=== PATIENT | male | born 1960 | race Two or more races ===

== ENCOUNTER 2021-06-18 08:54 | Inpatient (IN) | payer MEDICAID, OTHER ==
[~2021-06-18] VITALS: Ht 162.6 cm; Wt 88.7 kg
[2021-06-18] MEDS ORDERED: ASPirin 81 mg TAB PO ONE (09:15)
[2021-06-18 09:43] LABS: Basophils # (auto) 0.1 10 ^3/uL (0-0.2); Basophils % (auto) 1.6 % (0.0-2.0); Eosinophils # (auto) 0.3 10 ^3/uL (0-0.8); Eosinophils % (auto) 4.2 % (0.0-7.0); Hematocrit 46.6 % (41.0-53.0); Lymphocytes # (auto) 1.1 10 ^3/uL (0.4-5.4); Lymphocytes % (auto) 14.8 % (10.0-50.0); Mean Corpuscular Hemoglobin 31.8 pg (28.0-32.0); Mean Corpuscular Hgb Conc. 34.3 g/dL (32.0-36.0); Mean Corpuscular Volume 92.6 fL (80.0-100.0); Monocytes # (auto) 0.6 10 ^3/uL (0-1.3); Monocytes % (auto) 7.4 % (0.0-12.0); Neutrophils # (auto) 5.4 10 ^3/uL (1.6-8.6); Nucleated Red Blood Cells % 0.2 %; Red Blood Cells 5.03 10^6/uL (4.5-5.90); Red Cell Distribution Width 14.8 % (11.8-14.3); White Blood Cell 7.5 10^3/uL (4.4-10.8)
[2021-06-18 10:25] LABS: Albumin 3.5 g/dL (3.4-5.0); Calcium 8.6 mg/dL (8.5-10.1); Magnesium 2.6 mg/dL (1.6-2.6); Potassium 4.6 mmol/L (3.5-5.1)
[2021-06-18 10:34] LABS: BUN/Creatinine Ratio 16.3; Bilirubin, Total 0.4 mg/dL (0.2-1.0)
[2021-06-18] MEDS: SODIUM CHLORIDE 0.9% 1,000 ML IV ONE ×2 (10:35→10:44)
[2021-06-18] MEDS ORDERED: InsuLIN REG 1unit/0.01ml Soln (100units/ml) IV ONE (11:00)
[2021-06-18 12:10] LABS: Urine Bacteria NONE SEEN /hpf (None Seen); Urine Blood Negative /uL (Negative); Urine Specific Gravity 1.029 (1.001-1.035); Urine WBC 4 /hpf (0 - 3)
[2021-06-18] MEDS ORDERED: NITROGLYCERIN 0.4 MG SL TAB SL PRN (12:45)
[2021-06-18] MEDS ORDERED: FUROSEMIDE 100 MG/10ML VIAL IV ONE (12:45)
[2021-06-18] MEDS ORDERED: MORPHINE SULFATE INJECTION 2 MG/ML SYRG IV PRN (12:45)
[2021-06-18] MEDS ORDERED: hydrALAZINE HCL 20 MG/ML VL IV PRN (12:45)
[2021-06-18] MEDS ORDERED: DEXTROSE (50%) 50ML SYRG IV PRN (13:15)
[2021-06-18] MEDS ORDERED: NITROGLYCERIN 0.2MG/HR TOPICAL PATCH TD ONE (13:45)
[2021-06-18 13:50] LABS: Cholesterol 185 mg/dL (< 200); HDL Cholesterol 35 mg/dL (40-59); LDL Cholesterol 124 mg/dL (< 100); Triglycerides 180 mg/dL (< 150)
[2021-06-18 16:14] VITALS: BP 170/118
[2021-06-18 16:23] VITALS: BP 170/118
[2021-06-18] MEDS ORDERED: CARVEDILOL 12.5 MG TAB PO ONE (16:30)
[2021-06-18] MEDS ORDERED: LISINOPRIL 10 MG TAB PO ONE (16:30)
[2021-06-18 17:31] VITALS: BP 139/94
[2021-06-18] MEDS: InsuLIN REG 1unit/0.01ml Soln (100units/ml) SC SCH (17:52)
[2021-06-18] MEDS: ACCU-CHEK COMFORT CURVE STRIP VI SCH (17:53)
[2021-06-18] MEDS: FUROSEMIDE 40 MG/4 ML VIAL IV SCH (17:54)
[2021-06-18 22:00] VITALS: BP 97/62
[2021-06-18] MEDS: CARVEDILOL 12.5 MG TAB PO SCH (22:00)
[2021-06-19] MEDS: InsuLIN REG 1unit/0.01ml Soln (100units/ml) SC SCH ×5 (00:03→22:23)
[2021-06-19 05:00] VITALS: BP 95/54
[2021-06-19] MEDS: FUROSEMIDE 40 MG/4 ML VIAL IV SCH (06:00)
[2021-06-19] MEDS: ACCU-CHEK COMFORT CURVE STRIP VI SCH ×4 (06:12→18:30)
[2021-06-19 06:19] LABS: Basophils # (auto) 0.1 10 ^3/uL (0-0.2); Basophils % (auto) 1.4 % (0.0-2.0); Eosinophils # (auto) 0.4 10 ^3/uL (0-0.8); Eosinophils % (auto) 4.1 % (0.0-7.0); Hematocrit 44.9 % (41.0-53.0); Hemoglobin 15.7 g/dL (13.5-17.5); Lymphocytes # (auto) 1.3 10 ^3/uL (0.4-5.4); Lymphocytes % (auto) 13.6 % (10.0-50.0); Mean Corpuscular Hgb Conc. 34.9 g/dL (32.0-36.0); Mean Corpuscular Volume 91.5 fL (80.0-100.0); Monocytes # (auto) 0.7 10 ^3/uL (0-1.3); Monocytes % (auto) 7.4 % (0.0-12.0); Neutrophils # (auto) 7.2 10 ^3/uL (1.6-8.6); Neutrophils % (auto) 73.5 % (37.0-80.0); Nucleated Red Blood Cells % 0.1 %; Red Blood Cells 4.91 10^6/uL (4.5-5.90); Red Cell Distribution Width 15.1 % (11.8-14.3); White Blood Cell 9.9 10^3/uL (4.4-10.8)
[2021-06-19 06:31] LABS: Albumin 3.2 g/dL (3.4-5.0); Calcium 8.2 mg/dL (8.5-10.1); Potassium 3.8 mmol/L (3.5-5.1)
[2021-06-19 06:34] LABS: BUN/Creatinine Ratio 22.1; Bilirubin, Total 0.5 mg/dL (0.2-1.0); Total Protein 6.4 g/dL (6.4-8.2)
[2021-06-19 09:00] VITALS: BP_SYST 115; BP_SYST 91; BP_DIAS 61; BP_DIAS 78
[2021-06-19] MEDS: DAPAGLIFLOZIN 5 MG TAB PO SCH (09:33)
[2021-06-19] MEDS: CARVEDILOL 12.5 MG TAB PO SCH ×2 (09:34→22:52)
[2021-06-19] MEDS: ENOXAPARIN SOD 40 MG/0.4 ML SYRINGE SC SCH (09:40)
[2021-06-19] MEDS ORDERED: FUROSEMIDE 40 MG/4 ML VIAL IV SCH (10:00)
[2021-06-19] MEDS ORDERED: LISINOPRIL 20 MG TAB PO SCH (10:00)
[2021-06-19 13:00] VITALS: BP 101/62
[2021-06-19 17:00] VITALS: BP 112/58
[2021-06-19] MEDS: FUROSEMIDE 20 MG/2 ML VIAL IV SCH (18:38)
[2021-06-19 20:00] VITALS: BP 112/58
[2021-06-19 22:00] VITALS: BP 105/71
[2021-06-20 04:52] VITALS: BP 103/73
[2021-06-20] MEDS: FUROSEMIDE 20 MG/2 ML VIAL IV SCH ×2 (06:19→17:58)
[2021-06-20] MEDS: InsuLIN REG 1unit/0.01ml Soln (100units/ml) SC SCH ×3 (06:20→17:58)
[2021-06-20] MEDS: ACCU-CHEK COMFORT CURVE STRIP VI SCH ×4 (06:20→18:00)
[2021-06-20 07:21] LABS: BUN/Creatinine Ratio 28.2; Calcium 8.4 mg/dL (8.5-10.1); Potassium 4.3 mmol/L (3.5-5.1)
[2021-06-20 09:00] VITALS: BP 139/98
[2021-06-20] MEDS: DAPAGLIFLOZIN 5 MG TAB PO SCH (10:46)
[2021-06-20] MEDS: CARVEDILOL 12.5 MG TAB PO SCH ×2 (10:47→22:16)
[2021-06-20] MEDS: LISINOPRIL 10 MG TAB PO SCH (10:48)
[2021-06-20] MEDS: ENOXAPARIN SOD 40 MG/0.4 ML SYRINGE SC SCH (10:48)
[2021-06-20 13:00] VITALS: BP 122/84
[2021-06-20 16:55] LABS: Alcohol, Urine < 3.0 mg/dL (0-10); Amphetamine Screen, Urine NEGATIVE (NEGATIVE); Barbiturate Scree,Urine NEGATIVE (NEGATIVE); Benzodiazephine Screen, Urine NEGATIVE (NEGATIVE); Cannabinoid Screen, Urine NEGATIVE (NEGATIVE); Cocaine Screen, Urine NEGATIVE (NEGATIVE); Opiate Scree,Urine NEGATIVE (NEGATIVE); Phencyclidine Screen, Urine NEGATIVE (NEGATIVE)
[2021-06-20 17:00] VITALS: BP 108/74
[2021-06-20 22:00] VITALS: BP 114/75
[2021-06-21] MEDS: ACCU-CHEK COMFORT CURVE STRIP VI SCH ×4 (00:52→18:14)
[2021-06-21] MEDS: InsuLIN REG 1unit/0.01ml Soln (100units/ml) SC SCH ×4 (01:04→18:14)
[2021-06-21 05:00] VITALS: BP 101/64
[2021-06-21] MEDS: FUROSEMIDE 20 MG/2 ML VIAL IV SCH ×2 (06:16→18:16)
[2021-06-21] MEDS ORDERED: ADENOSINE 73 MG in GIVE UN-DILUTED 0 ML IV STA (07:29)
[2021-06-21 09:00] VITALS: BP 122/78
[2021-06-21] MEDS: CARVEDILOL 12.5 MG TAB PO SCH ×2 (09:40→22:17)
[2021-06-21] MEDS: LISINOPRIL 10 MG TAB PO SCH (09:40)
[2021-06-21] MEDS: ENOXAPARIN SOD 40 MG/0.4 ML SYRINGE SC SCH (09:40)
[2021-06-21] MEDS: DAPAGLIFLOZIN 5 MG TAB PO SCH (11:25)
[2021-06-21 13:00] VITALS: BP 129/90
[2021-06-21] MEDS ORDERED: FURO1TAB31 PO (16:09)
[2021-06-21] MEDS ORDERED: LISI20TA28 PO (16:09)
[2021-06-21] MEDS ORDERED: CAR125T PO (16:09)
[2021-06-21] MEDS ORDERED: DAPA1TAB4 PO (16:12)
[2021-06-21] MEDS ORDERED: INSLANTI SC (16:12)
[2021-06-21] MEDS ORDERED: ATOR10TA PO (16:15)
[2021-06-21 17:00] VITALS: BP 113/74
[2021-06-21 22:00] VITALS: BP 107/78
[2021-06-22] MEDS: ACCU-CHEK COMFORT CURVE STRIP VI SCH ×3 (00:12→11:59)
[2021-06-22] MEDS: InsuLIN REG 1unit/0.01ml Soln (100units/ml) SC SCH ×3 (00:18→12:03)
[2021-06-22 05:00] VITALS: BP 102/74
[2021-06-22] MEDS: FUROSEMIDE 20 MG/2 ML VIAL IV SCH (06:15)
[2021-06-22 09:00] VITALS: BP 120/77
[2021-06-22] MEDS: CARVEDILOL 12.5 MG TAB PO SCH (10:33)
[2021-06-22] MEDS: DAPAGLIFLOZIN 5 MG TAB PO SCH (10:33)
[2021-06-22] MEDS: LISINOPRIL 10 MG TAB PO SCH (10:34)
[2021-06-22] MEDS: ENOXAPARIN SOD 40 MG/0.4 ML SYRINGE SC SCH (10:34)
== END 2021-06-22 12:34 | disposition home or self-care (01) | DRG 194 ==
LOC: ER 08:54 → TELE 12:44 → TELE-WESTW 16:11
PROVIDERS: ADMIT Registered Nurse; ATTEND Internal Medicine
DX: I13.0 Hypertensive heart and chronic kidney disease with heart failure and stage 1 through stage 4 chronic kidney disease, or unspecified chronic kidney disease (principal); N17.0 Acute kidney failure with tubular necrosis; I50.43 Acute on chronic combined systolic (congestive) and diastolic (congestive) heart failure; I24.9 Acute ischemic heart disease, unspecified; I42.0 Dilated cardiomyopathy; I42.7 Cardiomyopathy due to drug and external agent; E88.09 Other disorders of plasma-protein metabolism, not elsewhere classified; E11.65 Type 2 diabetes mellitus with hyperglycemia; I16.0 Hypertensive urgency; Z20.822 Contact with and (suspected) exposure to COVID-19; E11.22 Type 2 diabetes mellitus with diabetic chronic kidney disease; E66.01 Morbid (severe) obesity due to excess calories; E78.5 Hyperlipidemia, unspecified; F15.90 Other stimulant use, unspecified, uncomplicated; F17.210 Nicotine dependence, cigarettes, uncomplicated; N18.30 Chronic kidney disease, stage 3 unspecified; Z91.19 Patient's noncompliance with other medical treatment and regimen
CPT/HCPCS: 36415; 71045; 78452; 80048; 80053; 80061; 80307; 81001; 82962; 83036; 83735; 83880; 84484; 85025; 85379; 93005; 93017; 93306; 96361; 96374; 96375; G0378; J0153; J1815

== ENCOUNTER 2021-07-08 16:03 | Emergency (ER) | payer MEDICAID ==
[~2021-07-08] VITALS: Ht 167.6 cm; Wt 88.0 kg
[2021-07-08 16:03] VITALS: BP 129/92
[~2021-07-08 16:03] MED LIST: ATOR10TA PO; CAR125T PO; DAPA1TAB4 PO; FURO1TAB31 PO; INSLANTI SC; LISI20TA28 PO
[2021-07-08] MEDS ORDERED: LISI-716 PO (17:27)
[2021-07-08] MEDS ORDERED: LISINOPRIL 10 MG TAB PO ONE (17:30)
== END 2021-07-08 17:45 | disposition left against medical advice (07) ==
LOC: ER 16:03
DX: I10 Essential (primary) hypertension (principal); E78.5 Hyperlipidemia, unspecified; F17.210 Nicotine dependence, cigarettes, uncomplicated; Z76.0 Encounter for issue of repeat prescription; Z79.4 Long term (current) use of insulin; Z79.899 Other long term (current) drug therapy

== ENCOUNTER 2021-07-19 09:18 | Emergency (ER) | payer MEDICAID ==
[~2021-07-19] VITALS: Ht 167.6 cm; Wt 101.6 kg
[~2021-07-19 09:18] MED LIST changes: +LISI-716 PO
[2021-07-19] MEDS ORDERED: TAM04C PO (14:13)
[2021-07-19] MEDS ORDERED: NITR-87 PO (14:13)
[2021-07-19] MEDS ORDERED: PERCOT PO (14:13)
[2021-07-19 14:46] VITALS: BP 158/82
== END 2021-07-19 14:48 | disposition home or self-care (01) ==
LOC: ER 09:18
DX: K80.20 Calculus of gallbladder without cholecystitis without obstruction (principal); E78.5 Hyperlipidemia, unspecified; I10 Essential (primary) hypertension; F17.210 Nicotine dependence, cigarettes, uncomplicated
CPT/HCPCS: 74176

== ENCOUNTER 2021-11-03 12:31 | Emergency (ER) | payer MEDICAID, OTHER ==
[~2021-11-03] VITALS: Ht 165.1 cm; Wt 89.0 kg
[~2021-11-03 12:31] MED LIST changes: -ATOR10TA PO; +ATOR20TA50 PO; -DAPA1TAB4 PO; -INSLANTI SC; +INSU1INJ19 SC; -LISI20TA28 PO; +METF-929 PO; +TAM04C PO
[2021-11-03 14:14] LABS: Basophils # (auto) 0.1 10 ^3/uL (0-0.2); Basophils % (auto) 1.4 % (0.0-2.0); Eosinophils # (auto) 0.8 10 ^3/uL (0-0.8); Eosinophils % (auto) 7.9 % (0.0-7.0); Hemoglobin 15.6 g/dL (13.5-17.5); Lymphocytes # (auto) 2.1 10 ^3/uL (0.4-5.4); Lymphocytes % (auto) 21.4 % (10.0-50.0); Mean Corpuscular Hemoglobin 31.3 pg (28.0-32.0); Mean Corpuscular Hgb Conc. 33.3 g/dL (32.0-36.0); Mean Corpuscular Volume 94.1 fL (80.0-100.0); Monocytes # (auto) 0.9 10 ^3/uL (0-1.3); Monocytes % (auto) 8.7 % (0.0-12.0); Neutrophils % (auto) 60.6 % (37.0-80.0); Nucleated Red Blood Cells % 0.1 %; Red Cell Distribution Width 14.6 % (11.8-14.3); White Blood Cell 9.9 10^3/uL (4.4-10.8)
[2021-11-03 14:35] LABS: Albumin 4.2 g/dL (3.4-5.0); Calcium 9.2 mg/dL (8.5-10.1); Potassium 4.5 mmol/L (3.5-5.1)
[2021-11-03 14:37] LABS: BUN/Creatinine Ratio 17.4; Bilirubin, Total 0.5 mg/dL (0.2-1.0); Total Protein 7.6 g/dL (6.4-8.2)
[2021-11-03] MEDS ORDERED: KETOROLAC TROMETH 60MG/2ML VIAL IM ONE (15:30)
[2021-11-03 15:53] LABS: Urine Bacteria FEW /hpf (None Seen); Urine Blood Negative /uL (Negative); Urine Hyaline Cast FEW /lpf (0 - 2); Urine Mucus FEW (None Seen); Urine Specific Gravity 1.031 (1.001-1.035); Urine WBC 2 /hpf (0 - 3)
[2021-11-03] MEDS ORDERED: InsuLIN REG 1unit/0.01ml Soln (100units/ml) SC ONE ×2 (16:15→16:45)
[2021-11-03] MEDS ORDERED: TAM04C PO (17:16)
[2021-11-03] MEDS ORDERED: TRAM-297 PO (17:16)
[2021-11-03 17:21] VITALS: BP 136/70
== END 2021-11-03 17:28 | disposition home or self-care (01) ==
LOC: ER 12:31
DX: N20.0 Calculus of kidney (principal); E11.65 Type 2 diabetes mellitus with hyperglycemia; I11.0 Hypertensive heart disease with heart failure; I50.9 Heart failure, unspecified; E78.5 Hyperlipidemia, unspecified; F17.210 Nicotine dependence, cigarettes, uncomplicated; Z79.4 Long term (current) use of insulin; Z79.899 Other long term (current) drug therapy
CPT/HCPCS: 36415; 74176; 80053; 81001; 85025; 96372; 99284; J1885; 82962; J1815

== ENCOUNTER 2021-12-02 10:41 | Emergency (ER) | payer MEDICAID ==
[~2021-12-02] VITALS: Ht 165.1 cm; Wt 115.0 kg
[~2021-12-02 10:41] MED LIST changes: +TRAM-297 PO
[2021-12-02 10:59] VITALS: BP 176/119
[2021-12-02] MEDS ORDERED: cloNIDine HCL 0.1 MG TAB PO ONE (11:00)
[2021-12-02] MEDS ORDERED: ONDANSETRON HCL 4 MG/2 ML VIAL IV ONE (11:15)
[2021-12-02] MEDS ORDERED: MORPHINE SULFATE 4 MG/ML SYR/VIAL IV ONE (11:15)
[2021-12-02] MEDS ORDERED: SODIUM CHLORIDE 0.9% 1,000 ML IVB ONE (11:15)
[2021-12-02 12:09] LABS: Basophils # (auto) 0.1 10 ^3/uL (0-0.2); Basophils % (auto) 1.1 % (0.0-2.0); Eosinophils # (auto) 0.4 10 ^3/uL (0-0.8); Eosinophils % (auto) 5.4 % (0.0-7.0); Hemoglobin 14.5 g/dL (13.5-17.5); Lymphocytes # (auto) 1.6 10 ^3/uL (0.4-5.4); Lymphocytes % (auto) 20.6 % (10.0-50.0); Mean Corpuscular Hemoglobin 32.6 pg (28.0-32.0); Mean Corpuscular Hgb Conc. 34.6 g/dL (32.0-36.0); Mean Corpuscular Volume 94.2 fL (80.0-100.0); Monocytes # (auto) 0.4 10 ^3/uL (0-1.3); Monocytes % (auto) 5.7 % (0.0-12.0); Neutrophils # (auto) 5.1 10 ^3/uL (1.6-8.6); Neutrophils % (auto) 67.2 % (37.0-80.0); Red Blood Cells 4.45 10^6/uL (4.5-5.90); Red Cell Distribution Width 14.1 % (11.8-14.3); White Blood Cell 7.7 10^3/uL (4.4-10.8)
[2021-12-02 12:20] LABS: Albumin 3.9 g/dL (3.4-5.0); Calcium 8.6 mg/dL (8.5-10.1); Potassium 4.4 mmol/L (3.5-5.1)
[2021-12-02 12:24] LABS: Bilirubin, Total 0.6 mg/dL (0.2-1.0); Total Protein 6.8 g/dL (6.4-8.2)
[2021-12-02] MEDS ORDERED: InsuLIN REG 1unit/0.01ml Soln (100units/ml) IV ONE (15:45)
[2021-12-02] MEDS ORDERED: METF-372 PO (16:37)
[2021-12-02] MEDS ORDERED: CARV3.1240 PO (16:37)
== END 2021-12-02 16:50 | disposition home or self-care (01) ==
LOC: ER 10:41
DX: E11.65 Type 2 diabetes mellitus with hyperglycemia (principal); I11.0 Hypertensive heart disease with heart failure; I50.9 Heart failure, unspecified; E78.5 Hyperlipidemia, unspecified; Z90.49 Acquired absence of other specified parts of digestive tract
CPT/HCPCS: 36415; 74176; 80053; 82962; 83690; 84484; 85025; 96361; 96374; 99284; J2405; J7030